=== PATIENT | female | born 1985 | race Caucasian/White ===

== ENCOUNTER 2017-01-03 14:19 | Inpatient (IN) | payer BC ==
[~2017-01-03] VITALS: Ht 157.5 cm; Wt 72.0 kg
[~2017-01-03 14:19] MED LIST: PRENATAL MULTI1 EACH PO
--- NOTE | 2017-02-03 08:55 | NUR ---
02/03/17 0855 ROSALES,VALERIA Saez 0825: PATIENT C/O HEADACHE. BUMPER AND PAINTER AT BEDSIDE. DENIES NAUSEA. 0835: STATES HEADACHE STILL THERE, "COMES AND GOES". MEDICATED BY BUMPER AND PAINTER. FAMILY AT BEDSIDE. 0848: BABY NURSING WITH HELP OF [facility] RN AND FAMILY. REPORT GIVEN TO [facility] RN.
--- NOTE | 2017-02-10 08:07 | OR ---
[facility] [address] [place], [place] [address] Signed DATE OF PROCEDURE: 02/03/17 PREOPERATIVE DIAGNOSIS: Term , previous section. POSTOPERATIVE DIAGNOSIS: Term , previous section. PROCEDURE Repeat low transverse segment section. Delivery of the live female . SURGEON: Myron Ramos M.D. ELECTRICAL DESIGN ENGINEER: Darshan Christian D.O. ANESTHESIA: Spinal. ESTIMATED BLOOD LOSS: 500 mL. COMPLICATIONS: None. DRAINS: Corona to bladder. FINDINGS Live female infant. Normal uterus. Normal tubes and ovaries bilateral. DESCRIPTION OF THE PROCEDURE The patient was brought in the operating room, placed in supine position. After adequate spinal anesthesia was obtained, she was prepped and draped in usual sterile fashion. Corona catheter was placed in the bladder. Pfannenstiel skin incision was made through previous surgical scar. Subcutaneous tissue was dissected with the Bovie. Fascia was nicked with scalpel and extended in transverse fashion using curved scissors. The underlying abdominal musculature was bluntly sharply from the fascia above and below the incision. The abdominal musculature was bluntly sharply along the midline. The peritoneum was grasped with hemostats and elevated and nicked with Metzenbaum scissors in extended vertical fashion using Metzenbaum scissors. The Gerson self-retaining retractor was inserted into the incision and tightened in place. The lower uterine segment was carefully observed. Bladder noted to be well below the area of dissection, so lower uterine segment was carefully nicked with scalpel and finger dissection used to extend this incision in the transverse fashion and noted to be in vertex presentation. head was easily delivered from the incision. The rest of the infant was easily delivered from the incision. The mouth and nose were suctioned with bulb syringe while the cord was doubly clamped and cut. The was passed off the table in good condition awaiting nurse. Placenta was manually removed and uterine cavity Electronically Signed By: MYRON RAMOS MD 02/10/17 0807 PATIENT NAME: LLUVIA MARROQUIN OPERATIVE REPORT DATE OF : 89 PHYSICIAN: MYRON RAMOS MD REPORT #: [id number] REPORT IS CONFIDENTIAL AND NOT TO BE RELEASED WITHOUT AUTHORIZATION [facility] [address] [place], [place] [address] Signed explored in lap pad to remove any retained membranes. An angled stitch of 0 Monocryl was placed in one end of the incision and running locking stitch of 0 Monocryl starting at the other end used to close the incision. Second running stitch of 0 Monocryl was used to imbricate the first layer. The entire pelvis was then irrigated, suctioned, examined and noted to have good hemostasis. The Gerson retractor was removed. The sheet of ACell placed over lower uterine segment to help with healing. The anterior wall peritoneum was then closed using a running stitch of 2-0 Vicryl suture. The abdominal musculature was closed using interrupted stitches of 0 Vicryl suture. The abdominal wall incision was irrigated, suctioned, examined, and any bleeding spots cauterized with the Bovie. The abdominal musculature was sprinkled with powdered ACell and then the fascia closed using 2 running stitch of 0 Vicryl suture meeting in the midline. Subcutaneous tissue was irrigated, suctioned, examined, and any bleeding spots cauterized with the Bovie. The remaining powdered ACell sprinkled on subcutaneous tissue, which was then closed using interrupted stitches of 3-0 Vicryl suture. Skin was reapproximated using skin clips. The patient tolerated the procedure well, went to recovery room in good condition. All sponge, needle, and instrument count correct at end of procedure. MD EBONY Abdi/Jesus /[id number] Electronically Signed By: MYRON RAMOS MD 02/10/17 0807 PATIENT NAME: LLUVIA MARROQUIN OPERATIVE REPORT DATE OF : 89 PHYSICIAN: MYRON RAMOS MD REPORT #: [id number] REPORT IS CONFIDENTIAL AND NOT TO BE RELEASED WITHOUT AUTHORIZATION
== END 2017-02-05 12:15 | disposition home or self-care (01) | DRG 766 ==
LOC: FBC 02-03 04:54
PROVIDERS: ADMIT General Practice
PROC: 10D00Z1 Extraction of Products of Conception, Low, Open Approach (ICD-10-PCS; principal; 2017-02-03 06:45)
DX: O34.211 Maternal care for low transverse scar from previous cesarean delivery (principal); Z37.0 Single live birth; Z3A.39 39 weeks gestation of pregnancy
CPT/HCPCS: 01961; 36415; 85027; C1763; J0690; J1100; J2274; J2370; J2405; J2590; J3010; J7120

== ENCOUNTER 2017-01-03 18:08 | Observation (INO) | payer BC ==
[~2017-01-03] VITALS: Ht 157.5 cm; Wt 69.0 kg
--- OUTSIDE RECORDS SUMMARY | ~2017-01-03 | XMS ---
Demographics + + + | Address | 1928 | | | [place] [address] | + + + | Preferred Language | Unknown | + + + | Marital Status | Unknown | + + + | Religion Affiliation | Unknown | + + + | Race | Unknown | + + + | Ethnic Group | Unknown | + + + Author + + + | Author | [facility] | + + + | Organization | [facility] | + + + | Address | [address] | | | [place] [address] | + + + | Phone | | + + + Care Team Providers + + + + | Care Antenna Rigger Name | Role | Phone | + + + + Unavailable | Unavailable | + + + + PROBLEMS +---------+ + + +--------+ + + | Type | Condition | ICD9-CM | FPU76-QR | Onset | Condition | SNOMED | | | | Code | Code | Dates | Status | Code | +---------+ + + +--------+ + + | Problem | Encounter | Z34.90 | | | Active | [id number] | | | for | | | | | | | | supervisio | | | | | | | | n of | | | | | | | | normal | | | | | | | | | | | | | | +---------+ + + +--------+ + + ALLERGIES Unknown Allergies SOCIAL HISTORY No smoking Hx information available PLAN OF CARE + +---------+ | Activity | Details | + +---------+ +---+ | | +---+ + + + | Pending Test | Biophysical Profile (BPP) | + + + | Pending Test | Doppler Blood Flow Studies of Umbilical | | | Artery | + + + VITAL SIGNS MEDICATIONS Unknown Medications RESULTS No Results PROCEDURES No Known procedures IMMUNIZATIONS No Known Immunizations"
--- OUTSIDE RECORDS SUMMARY | ~2017-01-03 | XMS ---
Demographics + + + | Address | 1928 | | | [place] [address] | + + + | Preferred Language | Unknown | + + + | Marital Status | Unknown | + + + | Jewish Affiliation | Unknown | + + + | Race | Unknown | + + + | Ethnic Group | Unknown | + + + Author + + + | Author | [facility] | + + + | Organization | [facility] | + + + | Address | [address] | | | [place] [address] | + + + | Phone | | + + + Care Team Providers + + + + | Care Global Engineering Manager Name | Role | Phone | + + + + Unavailable | Unavailable | + + + + PROBLEMS +---------+ + + +--------+ + + | Type | Condition | ICD9-CM | [id number]-[id number] | Onset | Condition | SNOMED | | | | Code | Code | Dates | Status | Code | +---------+ + + +--------+ + + | Problem | Encounter | Z34.90 | | | Active | [id number] | | | for | | | [...] smoking Hx information available PLAN OF CARE VITAL SIGNS MEDICATIONS Unknown Medications RESULTS No Results PROCEDURES No Known procedures IMMUNIZATIONS No Known Immunizations"
--- NOTE | 2017-01-04 08:18 | PR ---
[facility] [address] [facility] [place], [place] [address] Signed AP Progress Notes Datetime Report Generated by CPN: 01/04/2017 08:18 Chief Complaint: Abnormal Doppler Studies. Fetus Active PHYSICAL EXAM: [id number] General: Normal Abdomen: Normal Extremities: Normal VITAL SIGNS: [id number] Vital Signs: Reviewed; Within Normal Limits EXAM: [id number] Contraction Comments: rare MEMBRANES: [id number] Membranes: Intact Fetus A: [id number] FHR Baseline: 135 Variability: Moderate 6-25bpm Accelerations: 15X15 Deceleration: None Fetus B: [id number] PROGRESS NOTES: [id number] Impression: Abnormal Doppler Studies Plan: U/S to check KAMLA Consult with Perinatology (Dr. Enrique) today. Patient will stay here on monitor until time to leave for appointment. Signing Physician: Myron Booth MD CC: *Electronically Signed* 01/04/17817 MYRON BOOTH MD PATIENT NAME: LLUVIA MARROQUIN PROGRESS NOTE DATE OF : 89 PHYSICIAN: MYRON BOOTH MD RPT #: [id number] REPORT IS CONFIDENTIAL AND NOT TO BE RELEASED WITHOUT AUTHORIZATION
== END 2017-01-04 13:43 | disposition home or self-care (01) ==
LOC: FBC 18:08
PROVIDERS: ADMIT General Practice
DX: O41.93X0 Disorder of amniotic fluid and membranes, unspecified, third trimester, not applicable or unspecified (principal); Z3A.34 34 weeks gestation of pregnancy
CPT/HCPCS: 59025; 76815; 99212; G0378

== ENCOUNTER 2019-07-31 07:38 | Inpatient (IN) | payer BC ==
[~2019-07-31] VITALS: Ht 157.5 cm; Wt 73.0 kg
--- NOTE | 2019-08-02 09:10 | NUR ---
08/02/19 0910 BonifacioBhaveshLindsay 0850 TO ROOM FROM OR. ASSISTED IN OR WITH TAP BLOCK, PATIENT NOW RATING PAIN 0/10 ON PAIN SCALE. PATIENT AWAKE, APPEARS TO BE SHIVERING. PATIENT REQUESTING TO HOLD BABY. FATHER AT BEDSIDE. 0855 VSS. PATIENT RESTING SUPINE. BABY TO BREAST. PATIENT AWAKE AND ORIENTED. BREATHING REGULAR AND EVEN. 0900. BP SOFT, PATIENT CONTINUES LAY SUPINE. BABY TO BREAST. RATES PAIN 0/10 ON PAIN SCALE. PROVIDED WARM BLANKETS.
--- NOTE | 2019-08-03 10:18 | PR ---
[facility] [address] [place] [address] Signed PP Progress Notes Datetime Report Generated by CPN: 08/03/2019 10:18 SUBJECTIVE: [id number] Pain: Within normal limits Nausea/Vomiting: Denies Vital Signs: [id number] Vital Signs: Reviewed; Within Normal Limits Notable Details: PP Hgb/Hct = 10.2/30.4 EXAM: [id number] Abdomen/Uterus: Normal Lochia: Normal Extremities: Normal Incision: Normal IMPRESSION/PLAN/PROCEDURES: [id number] Impression: Normal progression Plan: Discharge Procedures: None Progress Notes: Doing well, without complaint, wants to go home today, taking only Ibuprofen. Signing Physician: Guy Booth MD Copies: ~ *Electronically Signed* 08/03/19 1018 GUY BOOTH MD PATIENT NAME: LLUVIA MARROQUIN PROGRESS NOTE DATE OF : 89 PHYSICIAN: GUY BOOTH MD RPT #: [id number] REPORT IS CONFIDENTIAL AND NOT TO BE RELEASED WITHOUT AUTHORIZATION
--- NOTE | 2019-08-06 09:27 | OR ---
[facility] [address] [place], [place] [address] Signed DATE OF OPERATION: 08/02/2019 SURGEON: Myron Ramos MD Patient of Dr. Ramos. PREOPERATIVE DIAGNOSIS: Term , previous section x2. POSTOPERATIVE DIAGNOSIS: Term , previous section x2. PROCEDURE: Low transverse segment section, delivery of live male infant. PROGRAMMER ANALYST HEALTH IT: Dr. Christian. ANESTHESIA: Spinal. ESTIMATED BLOOD LOSS: 500 mL. COMPLICATIONS: None. DRAINS: Corona to bladder. FINDINGS: Live male , Apgars 8 and 9. Weight 7 pounds 10 ounces. Normal uterus. Normal tubes and ovaries bilateral. DESCRIPTION OF PROCEDURE: The patient was brought to the operating room and placed in supine position. After adequate spinal anesthesia was obtained, she was prepped and draped in usual sterile fashion. Corona catheter was placed in the bladder. A Pfannenstiel skin incision was made through previous surgical scar using a scalpel. Subcutaneous tissue was dissected with scalpel and Bovie. The fascia was nicked with scalpel and extended in transverse Electronically Signed By: MYRON RAMOS MD 08/06/19 0927 PATIENT NAME: LLUVIA MARROQUIN OPERATIVE REPORT DATE OF : 89 REPORT #: [id number] PHYSICIAN: MYRON RAMOS MD PCP: BONIFACIO MCLEOD REPORT IS CONFIDENTIAL AND NOT TO BE RELEASED WITHOUT AUTHORIZATION [facility] [address] [place], [place] [address] Signed fashion using curved scissors. The underlying abdominal musculature was bluntly and sharply from the fascia above and below the incision. The abdominal musculature was bluntly and sharply along the midline. The peritoneum was grasped with hemostats, elevated, nicked with scissors and extended in vertical fashion using scissors. The Gerson self-retaining retractor was inserted into the incision and tightened in place. The lower uterine segment was identified and there was thin elevation of the bladder flap, so Metzenbaum scissors were used to carefully dissect this free and drop the bladder flap and bladder down lower. The lower uterine segment was then easily identified and a small carmelita made in the midline of the lower uterine segment using a scalpel. Bulging bag clear fluid came from the incision. Finger dissection was used to extend the incision in transverse fashion and membranes were ruptured. Clear fluid came from the incision. The was noted to be in vertex ROT presentation. head easily delivered from the incision. The rest of the was easily delivered from the incision. The cord doubly clamped and cut. The infant passed off table in good condition to awaiting nurse. The placenta was manually removed. The uterine cavity explored with a lap pad to remove any retained membranes. An angle stitch of 0 Monocryl was placed at one end of the incision and a running locking stitch of 0 Monocryl used to close the incision. A 2nd running stitch of 0 Monocryl was used to imbricate the 1st layer. There was small amount of bleeding in two spots along the incision. These were controlled with [id number] stitches of 0 Monocryl. When good hemostasis was obtained, the entire pelvis was irrigated, suctioned, examined, and any superficial bleeding spots cauterized with the Bovie. Good hemostasis was obtained. The Gerson retractor was removed and sheet of ACell placed over lower uterine segment to help with healing. The anterior wall peritoneum was closed using running stitch of 2-0 Vicryl suture. The abdominal musculature was reapproximated using interrupted stitches of 0 Vicryl suture. The abdominal wall incision was irrigated, suctioned, examined, and any bleeding spots cauterized with the Bovie. Powdered ACell was sprinkled on the abdominal musculature again to help with healing. The fascia was then closed using two running stitches of 0 Vicryl suture meeting in the midline. Subcutaneous tissue was irrigated, suctioned, examined, and any bleeding spots cauterized with the Bovie. Subcutaneous tissue was closed using interrupted stitches of 3-0 Vicryl suture and the skin reapproximated using skin clips. The patient tolerated the procedure well and went to recovery room in good condition. The sponge, needle, and instrument count correct at the end of the procedure. Myron Ramos MD MJB/MODL Electronically Signed By: MYRON RAMOS MD 08/06/19 0927 PATIENT NAME: LLUVIA MARROQUIN OPERATIVE REPORT DATE OF : 89 REPORT #: [id number] PHYSICIAN: MYRON RAMOS MD PCP: BONIFACIO MCLEOD REPORT IS CONFIDENTIAL AND NOT TO BE RELEASED WITHOUT AUTHORIZATION [address] [address] Signed /[id number] Copies: ~ Electronically Signed By: MYRON RAMOS MD 08/06/19 0927 PATIENT NAME: LLUVIA MARROQUIN OPERATIVE REPORT DATE OF : 89 REPORT #: [id number] PHYSICIAN: MYRON RAMOS MD PCP: BONIFACIO MCLEOD REPORT IS CONFIDENTIAL AND NOT TO BE RELEASED WITHOUT AUTHORIZATION
== END 2019-08-03 17:31 | disposition home or self-care (01) | DRG 787 ==
LOC: FBC 08-02 05:48
PROVIDERS: ADMIT General Practice
PROC: 10D00Z1 Extraction of Products of Conception, Low, Open Approach (ICD-10-PCS; principal; 2019-08-02 06:45)
PROC: 3E0T3BZ Introduction of Anesthetic Agent into Peripheral Nerves and Plexi, Percutaneous Approach (ICD-10-PCS; 2019-08-03)
PROC: 3E0T33Z Introduction of Anti-inflammatory into Peripheral Nerves and Plexi, Percutaneous Approach (ICD-10-PCS; 2019-08-03)
DX: O34.211 Maternal care for low transverse scar from previous cesarean delivery (principal); O99.355 Diseases of the nervous system complicating the puerperium; N85.8 Other specified noninflammatory disorders of uterus; O32.2XX0 Maternal care for transverse and oblique lie, not applicable or unspecified; Z37.0 Single live birth; G89.18 Other acute postprocedural pain; Z3A.39 39 weeks gestation of pregnancy; O69.81X0 Labor and delivery complicated by cord around neck, without compression, not applicable or unspecified; Z88.0 Allergy status to penicillin
CPT/HCPCS: 01961; 36415; 64488; 76942; 85027; A9270; J0690; J1100; J2001; J2274; J2370; J2405; J2550; J2590; J2795; J3010; J7121

== ENCOUNTER 2022-01-08 13:26 | Inpatient (IN) | payer BC ==
[~2022-01-08] VITALS: Ht 157.5 cm; Wt 73.9 kg
--- NOTE | 2022-01-20 12:27 | PR ---
[facility] [address] [place] [address] Signed PP Progress Notes Datetime Report Generated by CPN: 01/20/2022 12:27 SUBJECTIVE: [id number] Pain: Within Normal Limits Nausea/Vomiting: Denies Vital Signs: [id number] Notable Details: PP Hgb/Hct = 10.5/30.6 Abdomen/Uterus: Normal Lochia: Normal Extremities: Normal Incision: Normal IMPRESSION/PLAN/PROCEDURES: [id number] Impression: Normal Progression Plan: Continue Present Management Procedures: None Progress Notes: Doing well, without complaint, tolerating food well, voiding without difficulty, up moving without problem. Signing Physician: Guy Booth MD Copies: ~ *Electronically Signed* 01/20/22 1227 GUY BOOTH MD PATIENT NAME: LLUVIA MARROQUIN PROGRESS NOTE DATE OF : 89 PHYSICIAN: GUY BOOTH MD RPT #: [id number] REPORT IS CONFIDENTIAL AND NOT TO BE RELEASED WITHOUT AUTHORIZATION
== END 2022-01-21 12:50 | disposition home or self-care (01) | DRG 788 ==
LOC: FBC 01-19 04:50
PROVIDERS: ADMIT General Practice; ATTEND General Practice
PROC: 10D00Z1 Extraction of Products of Conception, Low, Open Approach (ICD-10-PCS; principal; 2022-01-19 07:30)
DX: O34.211 Maternal care for low transverse scar from previous cesarean delivery (principal); O69.1XX0 Labor and delivery complicated by cord around neck, with compression, not applicable or unspecified; Z37.0 Single live birth; Z88.0 Allergy status to penicillin; Z91.030 Bee allergy status; Z79.899 Other long term (current) drug therapy; Z3A.39 39 weeks gestation of pregnancy
CPT/HCPCS: 36415; 85027; 86850; 86900; 86901; A9270; J0690; J1100; J2001; J2274; J2370; J2405; J2590; J7121

== ENCOUNTER 2022-05-15 14:22 | Emergency (ER) | payer BC ==
[~2022-05-15] VITALS: Ht 157.5 cm; Wt 65.8 kg
== END 2022-05-15 15:52 | disposition home or self-care (01) ==
LOC: ED 14:22
DX: S30.0XXA Contusion of lower back and pelvis, initial encounter (principal); Z88.0 Allergy status to penicillin; Z91.030 Bee allergy status; W19.XXXA Unspecified fall, initial encounter
CPT/HCPCS: 99283